=== PATIENT | male | born 1960 | race Caucasian/White ===

== ENCOUNTER 2021-12-08 08:49 | Inpatient (IN) ==
--- NOTE | 2021-11-23 09:23 | PAT Medication Instructions ---
Medication Instructions Date of Service November 23, 2021 Home Medications Medication Instructions Recorded metformin 500 mg tablet 1,000 mg PO BID #360 tabs 02/23/21 lisinopril 20 mg tablet 20 mg PO QPM #90 tabs 02/24/21 pantoprazole 40 mg tablet,delayed 40 mg PO QPM #90 tabs 06/21/21 release sertraline 100 mg tablet 100 mg PO QPM #90 tabs 06/21/21 melatonin 3 mg tablet 3 mg PO HS PRN metformin 500 mg tablet 1,000 mg PO BID lisinopril 20 mg tablet 20 mg PO QPM pantoprazole 40 mg tablet,delayed release 40 mg PO QPM sertraline 100 mg tablet 100 mg PO QPM aspirin 81 mg tablet,delayed release 81 mg PO QAM atorvastatin 40 mg tablet 40 mg PO HS celecoxib 100 mg capsule (Celebrex) 100 mg PO QAM cholecalciferol (vitamin D3) 50 mcg (2,000 unit) capsule 50 mcg PO QAM empagliflozin 10 mg tablet (Jardiance) 10 mg PO QAM mecobalamin (vitamin B12) 1,000 mcg chewable tablet 1,000 mcg PO QAM STOP 3 days before surgery empagliflozin 10 mg tablet (Jardiance) 10 mg PO QAM ASK your surgeon for instructions celecoxib 100 mg capsule (Celebrex) 100 mg PO QAM ASK your prescriber and surgeon aspirin 81 mg tablet,delayed release 81 mg PO QAM DO NOT take the morning of surgery metformin 500 mg tablet 1,000 mg PO BID cholecalciferol (vitamin D3) 50 mcg (2,000 unit) capsule 50 mcg PO QAM mecobalamin (vitamin B12) 1,000 mcg chewable tablet 1,000 mcg PO QAM Take evening before surgery melatonin 3 mg tablet 3 mg PO HS PRN(if needed) metformin 500 mg tablet 1,000 mg PO BID lisinopril 20 mg tablet 20 mg PO QPM pantoprazole 40 mg tablet,delayed release 40 mg PO QPM sertraline 100 mg tablet 100 mg PO QPM atorvastatin 40 mg tablet 40 mg PO HS Other Notes NOTHING TO EAT OR DRINK AFTER MIDNIGHT. If you have any questions please call us at [phone] or [phone] or [phone] or [phone]
--- NOTE | 2021-11-24 13:06 | Anesthesiology Consultation ---
Date of Service November 24, 2021 Assessment & Plan (1) Encounter for pre-operative examination: - COVID screening: Per assessment on 11/24: No known COVID-19 positive contacts or current COVID-19 related symptoms. Travel screen negative. At surgeon discretion if preop Covid testing being done. - Check BSG AM DOS - ASA instructions per surgeon/prescriber Chart Review Chart Review: Acceptable Risk for Surgery and Patient seen in Pre Admission Testing Teaching & Discussion Pre-Anesthesia Teaching/Discussion Notes: Instructed NPO after midnight before surgery,except medications with 15 cc of water. Medication instructions provided according to the PAT guidelines. History Surgery Operation Date: 12/08/21 07:30 Proposed Procedures p Left Common Femoral Endarterectomy with Patch - Franko Kuhn MD Height/Weight Height: 5 ft 10 in Weight: 98.8 kg Allergies Allergy/AdvReac Type Severity Reaction Status Date / Time niacin Allergy Swelling Verified 11/22/21 10:33 of Lip/Tongue/Throat, hives Medications Home Medications Medication Instructions Recorded Confirmed Last Taken melatonin 3 mg tablet 3 mg PO HS PRN Sleep 12/10/20 11/22/21 Unknown metformin 500 mg tablet 1,000 mg PO BID #360 tabs 02/23/21 11/22/21 Unknown lisinopril 20 mg tablet 20 mg PO QPM #90 tabs 02/24/21 11/22/21 Unknown pantoprazole 40 mg tablet,delayed 40 mg PO QPM #90 tabs 06/21/21 11/22/21 Unknown release sertraline 100 mg tablet 100 mg PO QPM #90 tabs 06/21/21 11/22/21 Unknown aspirin 81 mg tablet,delayed 81 mg PO QAM 11/22/21 11/22/21 Unknown release atorvastatin 40 mg tablet 40 mg PO HS 11/22/21 11/22/21 Unknown celecoxib 100 mg capsule (Celebrex) 100 mg PO QAM 11/22/21 11/22/21 Unknown cholecalciferol (vitamin D3) 50 50 mcg PO QAM 11/22/21 11/22/21 Unknown mcg (2,000 unit) capsule empagliflozin 10 mg tablet 10 mg PO QAM 11/22/21 11/22/21 Unknown (Jardiance) mecobalamin (vitamin B12) 1,000 1,000 mcg PO QAM 11/22/21 11/22/21 Unknown mcg chewable tablet Past Medical History Medical History Depression DM type 2 (diabetes mellitus, type 2) Femoral artery stenosis Severe calcified plaque within the left common femoral artery demonstrating up to 70% stenosis, Moderate calcified plaque within the right common femoral artery without significant stenosis per 10/2021 CTA GERD (gastroesophageal reflux disease) HLD (hyperlipidemia) HTN (hypertension) Exercise / Class Metabolic Activity II 4-5 Yardwork/Stairs/Walk up hill (one FS (no CP, no SOB)) Past Family History Family History Other No family history of adverse response to anesthesia Denies family history of Ovarian cancer Prostate cancer Myocardial infarction Breast cancer Colorectal cancer Past Surgical History Surgical History H/O elbow surgery Rt H/O hemorrhoidectomy History of colonoscopy History of esophagogastroduodenoscopy (EGD) History of hand surgery Lt [place] teeth extracted Past Anesthesia History No Hx of Anesthesia Complications and No Family Hx of Anesthesia Complications History of PONV No Hx of PONV and No Hx of Motion Sickness Social History Smoking Status: Former smoker Do You Dip or Chew Tobacco: No Smoking End Date: Quit 1995 Hx Alcohol Use: No (Sober since 2013) Hx Substance Use: No substance use type: does not use Review of Systems Patient denies chest pain, shortness of breath, dyspnea on exertion, fever, chills, cough, wheezing, palpitations. Physical Exam Vital Signs VITALS BP 118/74 P 80 TEMP 98.4 SP02 96%Ra RESP 18 PHYSICAL Full cervical extension range of motion. Full TMJ range of motion. TMD 3 finger breaths Mallampati Score 2 Dentition: intact, + several crowns/bridge/implant (sides) Lungs: clear throughout to auscultation Cardiac: regular rate and rhythm, no murmurs noted Spine: normal Carotid arteries: negative bruit Extremities: no edema Lab Results Anesthesia Preop Results Results Anesthesia Widget: WBC 9.26 K/ul (4.8-10.8) 11/24/21 Hgb 16.4 g/dl (14.0-18.0) 11/24/21 Hct 47.6 % (40.1-51.0) 11/24/21 Plt 212 K/uL (130-400) 11/24/21 Na 136 mmol/L (136-145) 11/24/21 K 3.9 mmol/L (3.5-5.1) 11/24/21 Cl 102 mmol/L (98-107) 11/24/21 CO2 27 mmol/L (21-32) 11/24/21 BUN 17 mg/dl (6-23) 11/24/21 Creat 0.90 mg/dl (0.6-1.4) 11/24/21 Glucose Level 167 mg/dl (70-99(Fasting)) H 11/24/21 PT 11.1 Seconds (9.0-12.0) 11/24/21 PTT 27.8 Seconds (21.0-31.0) 11/24/21 INR 1.0 (0.9-1.1) 11/24/21 HA1c 6.5 % (4.5-5.6) H 11/24/21 Blood Type O Positive 11/24/21 Antibody Screen NEGATIVE 11/24/21 Testing Electrocardiogram Date: 11/24/21 Findings: + NSR @ (70) Chest X-Ray Date: 11/24/21 FINDINGS: No pneumothorax. No pleural effusions. There are few punctate calcified granulomas within the right lung apex. Otherwise, the lungs are clear. The heart is normal in size. No evidence for pulmonary edema. IMPRESSION: No acute process. Other Testing CTA Abd/Pelvis/LEs (10/28/21) Severe calcified plaque within the left common femoral artery demonstrating up to 70% stenosis. Moderate calcified plaque within the right common femoral artery without significant stenosis. Only the proximal calf arteries are opacified due to the timing of contrast but appear patent. Therefore, this suggests three-vessel runoff bilaterally. COVID-19 Risk Screen Screening Information COVID-19 Screen Date: 11/24/21 Exposure 21 Days Family/Household +COVID Last 21 Days: No Exposure 10 Days Any COVID Exposure Last 10 Days: No Symptoms Last 10 Days Experienced COVID Sx Last 10 Days: No + COVID 0-90 Days COVID + in Last 0-90 Days: No
--- NOTE | 2021-12-08 07:32 | History & Physical Report ---
Date of Service December 08, 2021 Assessment & Plan (1) PAD (peripheral artery disease): Plan: At this point I recommended a left femoral artery endarterectomy. I did explain to him that this may not totally alleviate his problems as some of the symptoms appear to be neurogenic. He understands this and is agreeable to go ahead with the surgical procedure History of Present Illness Chief Complaint: Left common femoral artery stenosis Primary Care Provider: Tony Villarreal MD _Mr. Lopez is a middle-aged male who presents to Dr. Kuhn's vascular surgery clinic today as a new patient in consultation for leg burning and peripheral arterial disease noted on recent imaging. Patient states that he has noted bilateral thigh burning and occasional numbness when walking for the past 2 years or so. He states that after resting for about 5 minutes he is able to walk again but has the discomfort almost immediately when he begins walking the second time. He states he is able to ambulate about 3 blocks before the pain makes him stop the first time. He states sometimes it does move down into his calf muscles as well, but it is primarily his thighs that of the problem. It is worse and happens at an earlier point in ambulation when he is going uphill. He also has a symptoms if he stands in 1 position for a long period of time such as when cooking at the stove. He admits some mild edema of the ankles when sitting for long periods. He denies any history of major back problems, but does state that he sees a chiropractor regularly. He states he occasionally has some discomfort across his low back, but does not particularly associate this with his ambulation. He does not have improvement if he leans on the cart to walk through the grocery store. He denies headache, fever, chills, chest pain, shortness of breath, abdominal pain, nausea, vomiting, rest pain, nonhealing wounds or ulcers, discoloration of the feet or toes, other concerns. Allergies Allergy/AdvReac Type Severity Reaction Status Date / Time niacin Allergy Swelling Verified 11/22/21 10:33 of Lip/Tongue/Throat, hives Home Medications Medication Instructions Recorded Confirmed Type melatonin 3 mg tablet 3 mg PO HS PRN Sleep 12/10/20 11/22/21 History metformin 500 mg tablet 1,000 mg PO BID #360 tabs 02/23/21 11/22/21 Rx lisinopril 20 mg tablet 20 mg PO QPM #90 tabs 02/24/21 11/22/21 Rx pantoprazole 40 mg tablet,delayed 40 mg PO QPM #90 tabs 06/21/21 11/22/21 Rx release sertraline 100 mg tablet 100 mg PO QPM #90 tabs 06/21/21 11/22/21 Rx aspirin 81 mg tablet,delayed 81 mg PO QAM 11/22/21 11/22/21 History release atorvastatin 40 mg tablet 40 mg PO HS 11/22/21 11/22/21 History celecoxib 100 mg capsule (Celebrex) 100 mg PO QAM 11/22/21 11/22/21 History cholecalciferol (vitamin D3) 50 50 mcg PO QAM 11/22/21 11/22/21 History mcg (2,000 unit) capsule empagliflozin 10 mg tablet 10 mg PO QAM 11/22/21 11/22/21 History (Jardiance) mecobalamin (vitamin B12) 1,000 1,000 mcg PO QAM 11/22/21 11/22/21 History mcg chewable tablet Past Med/Surg History Medical History Depression DM type 2 (diabetes mellitus, type 2) Femoral artery stenosis Severe calcified plaque within the left common femoral artery demonstrating up to 70% stenosis, Moderate calcified plaque within the right common femoral artery without significant stenosis per 10/2021 CTA GERD (gastroesophageal reflux disease) HLD (hyperlipidemia) HTN (hypertension) Surgical History H/O elbow surgery Rt H/O hemorrhoidectomy History of colonoscopy History of esophagogastroduodenoscopy (EGD) History of hand surgery [place] teeth extracted Family History Other No family history of adverse response to anesthesia Denies family history of Ovarian cancer Prostate cancer Myocardial infarction Breast cancer Colorectal cancer Social History Smoking Status: Former smoker Second Hand Exposure: No; Hx Alcohol Use: No (Sober since 2013) Hx Substance Use: No Preferred Language: Tongan Communication Ability: Effective Wireless Consultant Required: No Beliefs That Will Affect Care: None Current Living Situation: Spouse Feels Safe at Home: Yes Assistive Devices: Glasses Review of Systems All systems reviewed & are unremarkable except as noted in HPI & below Physical Exam Physical Exam: Constitutional: In general patient is an obese but healthy- appearing well-nourished well-developed middle-aged male no distress. Is alert and oriented without any focal deficits. His head is normocephalic and atraumatic. Neck is supple nontender with a midline trachea and no carotid bruit. His heart is regular without murmur. His lungs are clear throughout. His abdomen is soft nontender with normoactive bowel sounds in all 4 quadrants. I do not appreciate any pulsatile mass. Brachial radial are +3. Right femoral pulses plus 2. His left femoral pulse is nonpalpable. Right lower extremity distal pulses are +2. His left distal pulses are nonpalpable. He has brisk capillary fill to the toes and no sign of distal ischemia. There is trace edema at the ankles.
[2021-12-08] MEDS: LACTATED RINGER'S 1,000 ML IV SCH ×4 (09:23→22:23)
[2021-12-08] MEDS ORDERED: ONDANSETRON INJ 2 MG/ML 2 ML VIAL IV PRN ×2 (09:55→14:23)
[2021-12-08] MEDS ORDERED: ATROPINE SULFATE 0.1 MG/ML 10ML SYR IV PRN (09:55)
[2021-12-08] MEDS ORDERED: PROMETHAZINE HCL 6.25 MG in SODIUM CHLORIDE 0.9% 50 ML IV PRN (09:55)
[2021-12-08] MEDS ORDERED: KETOROLAC 30 MG/ML VIAL IV PRN (09:55)
[2021-12-08] MEDS ORDERED: LABETALOL HCL IV 5 MG/ML 20ML IV PRN (09:55)
[2021-12-08] MEDS ORDERED: MIDAZOLAM HCL 1 MG/ML 2ML VIAL ONE (10:24)
[2021-12-08] MEDS ORDERED: fentaNYL citrate 100 MCG/2 ML VIAL ONE ×3 (10:24→11:26)
[2021-12-08] MEDS ORDERED: HEPARIN SOD (PORCINE) 5,000 UNITS/ML VIAL ONE (10:31)
[2021-12-08] MEDS ORDERED: LIDOCAINE 1% LOCAL 20 ML VIAL ONE (10:31)
[2021-12-08] MEDS ORDERED: EPINEPHrine INJ 1 MG/ML AMP ONE (10:31)
[2021-12-08] MEDS ORDERED: PAPAVERINE HCL INJ 30 MG/ML 2 ML VIAL ONE (10:31)
[2021-12-08] MEDS ORDERED: BUPIVACAINE 0.5 % 5 MG/1 ML MPF 30ML VIAL ONE (10:31)
[2021-12-08] MEDS ORDERED: ceFAZolin 330 MG/ML 1 GM VIAL ONE (10:32)
[2021-12-08] MEDS ORDERED: GELATIN SPONGE SZ 100 ONE (10:32)
[2021-12-08] MEDS ORDERED: THROMBIN 5000 UNITS KIT ONE ×2 (10:32→10:44)
[2021-12-08] MEDS ORDERED: HEPARIN (PORCINE) 1000 UNIT/ML 10 ML (CATH LAB USE ONLY) ONE (10:48)
--- NOTE | 2021-12-08 10:48 | History & Physical Bridge Note ---
Date of Service December 08, 2021 History & Physical Bridge Note I have examined the patient, reviewed the History & Physical and in the interval since the performance of the History & Physical I have noted the following changes of clinical significance: no changes noted
[2021-12-08] MEDS: CEFAZOLIN 2,000 MG/15 ML SYR IV SCH (10:51)
[2021-12-08] MEDS ORDERED: DEXAMETHASONE SOD INJ 4 MG/ML VIAL ONE (11:28)
[2021-12-08] MEDS ORDERED: LIDOCAINE 2% 2 ML VIAL/AMP(20MG/ML) INFIL ONE (11:28)
[2021-12-08] MEDS ORDERED: ePHEDrine sulfate 50 MG/ML SYR ONE (11:28)
[2021-12-08] MEDS ORDERED: PROPOFOL IV EMULSION 10 MG/ML 20 ML VIAL IV ONE (11:28)
[2021-12-08] MEDS ORDERED: ONDANSETRON INJ 2 MG/ML 2 ML VIAL ONE (11:28)
[2021-12-08] MEDS ORDERED: HEPARIN SOD (PORCINE) 1000 UNIT/ML ONE (11:28)
--- NOTE | 2021-12-08 12:46 | Operative Report ---
Post Operative Report Pre & Post Diagnosis Operation Date: 12/08/21 10:50 Pre-Op Diagnosis: peripheral artery disease Post-Op Diagnosis: peripheral artery disease I identified the patient and participated in the time-out.: Yes Procedure Operation Date: 12/08/21 10:50 Actual Procedures p Left Common Femoral Endarterectomy with bovine Patch(Left) - Franko Kuhn MD Surgeon Franko Kuhn MD Addresser Cj,PAC Estimated Blood Loss 50 Findings Consistent with Post-Op Diagnosis Specimens none Anesthesia Type General Complications none Disposition Accompanied Patient To Recovery: No Disposition: Recovery Room Indications This 61-year-old gentleman with severe left leg claudication. He was found to have a nearly occluded left common femoral artery. Endarterectomy of patch was recommended. I have discussed the risks options and benefits of the procedure with the patient. The patient understands the risks options and benefits and agrees to the procedure. Description of Procedure The patient was taken to the operating placed in place in the supine position. The left groin was then prepped and draped in a sterile manner after general a nesthesia was accomplished. Timeout was performed and the patient was identified. Longitudinal incision was made in the left groin. Is carried down through subcutaneous layer and the femoral sheath where the common femoral artery was identified. It was extremely hard to palpation. The common femoral artery was isolated just beyond its bifurcation to the superficial profundofemoral arteries. Both the superficial and profundofemoral arteries were soft. The common femoral artery at the inguinal ligament was soft. Once this entire dissection of common femoral artery was isolated the patient was heparinized. The artery was clamped proximally and the superficial femoral and profundofemoral arteries were clamped distally. A longitudinal arteriotomy was then made. A large amount of calcified plaque was seen in the artery with a barely patent lumen. Endarterectomy was started on the common femoral artery and the midportion. It was carried upward and downward. There was a nice break off point proximally. Distally the break-up point was smooth however we did use 3 tacking stitches to tack the plaque down in the superficial femoral artery origin. The profundofemoral artery origin was widely patent. After all loose plaque and flaps were removed a bovine patch was sewn in place using a 5-0 Prolene suture in the usual vascular fashion. Prior to completing the closure backbleeding and forward bleeding was allowed to occur. The final few sutures were then placed and securely tied after irrigating the flow surface with heparinized saline. Clamps were removed from the profunda and common femoral arteries. Finally the clamp was removed and superficial femoral artery. Excellent flow with a good pulse was felt throughout. Adequate hemostasis was then obtained. After adequate hemostasis was noted of the patch and the wound the wound was closed in usual fashion using running 2-0 Vicryl suture for the femoral sheath and a running 3-0 Vicryl suture for the subcutaneous layer. Javier were used for the skin and a Prevena dressing was placed over the wound.The patient left the operation room in satisfactory condition and tolerated the procedure well. All needle and sponge counts were correct at the end of the procedure. Berkley Limon Pac assisted due to lack of resident availability and was necessary for positioning, draping, retraction, wound closure deep layers, subcutaneous tissue, and skin closure and was necessary for assisting with the case. I attest to the content of the Intraoperative Record and any orders documented therein. Any exceptions are noted below.
[2021-12-08] MEDS: fentaNYL citrate 100 MCG/2 ML VIAL IV PRN ×8 (13:05→13:41)
[2021-12-08] MEDS: HYDROmorphone INJ 1 MG/ML SYRINGE IV PRN ×2 (13:47→13:52)
[2021-12-08] MEDS ORDERED: HYDROmorphone INJ 1 MG/ML SYRINGE ONE (13:47)
--- NOTE | 2021-12-08 14:07 | Anesthesiology Progress Note ---
Date of Service December 08, 2021 Anesthesia Post Procedure Vital Signs Vital Signs: Temp Pulse Pulse Resp BP BP Pulse Ox 12/08/21 14:00 36.5 C 65 16 131/76 98 12/08/21 13:50 63 25 H 117/83 99 12/08/21 13:40 64 21 128/74 97 12/08/21 13:30 59 L 15 119/84 94 12/08/21 13:20 66 13 137/75 96 12/08/21 13:10 64 15 138/79 100 12/08/21 13:00 69 15 141/76 H 99 12/08/21 12:54 36.0 C L 73 16 142/74 H 98 12/08/21 09:24 36.7 C 62 18 122/76 130/76 97 O2 Del Method O2 Flow Rate 12/08/21 14:00 Nasal Cannula 2 12/08/21 13:50 Nasal Cannula 2 12/08/21 13:40 Oxymask 2 12/08/21 13:30 Oxymask 2 12/08/21 13:20 Oxymask 2 12/08/21 13:10 Oxymask 4 12/08/21 13:00 Oxymask 4 12/08/21 12:54 Oxymask 4 12/08/21 09:24 Room Air Pain Intensity Left Groin: Pain Intensity: 2 Left Thigh: Pain Intensity: 3 Transfer of Care Handoff Completed per policy Notes Mental Status: alert / awake / arousable Patient Amnestic to Procedure: Yes Nausea / Vomiting: adequately controlled Pain: adequately controlled Airway Patency, RR, SpO2: stable & adequate BP & HR: stable & adequate Hydration State: stable & adequate Anesthetic Complications: no major complications apparent
[2021-12-08] MEDS ORDERED: MoRPHine SULFATE 4 MG/ML 1 ML CARP\\VIAL IV PRN (14:23)
[2021-12-08] MEDS ORDERED: MELATONIN 3 MG TAB PO PRN (14:23)
[2021-12-08] MEDS: ceFAZolin 2000MG 2,000 MG/15 ML SYR IV SCH ×2 (16:09→23:22)
[2021-12-08] MEDS: oxyCODONE/ACETAMINOPHEN 5mg/325mg TAB PO PRN ×2 (16:24→21:44)
[2021-12-08] MEDS ORDERED: SERTRALINE HCL 100 MG TABLET PO SCH (21:00)
[2021-12-08] MEDS ORDERED: lisinopril 20 MG TAB PO SCH (21:00)
[2021-12-08] MEDS ORDERED: ATORVASTATIN 40 MG TAB PO SCH (21:00)
[2021-12-08] MEDS ORDERED: PANTOprazole 40 MG TAB PO SCH (21:00)
[2021-12-08] MEDS: metFORMIN HCL 500 MG TAB PO SCH (21:46)
[2021-12-09] MEDS: LACTATED RINGER'S 1,000 ML IV SCH ×2 (00:17→05:38)
[2021-12-09] MEDS: oxyCODONE/ACETAMINOPHEN 5mg/325mg TAB PO PRN ×3 (03:23→14:18)
[2021-12-09] MEDS ORDERED: FLUARIX QUADRIVALENT 0.5 ML SYR IM ONE (08:00)
[2021-12-09] MEDS: metFORMIN HCL 500 MG TAB PO SCH (08:20)
[2021-12-09] MEDS ORDERED: CELECOXIB 100 MG CAP PO SCH (09:00)
[2021-12-09] MEDS ORDERED: ASPIRIN 81 MG ECTAB PO SCH (09:00)
[2021-12-09] MEDS ORDERED: EMPAGLIFLOZIN 10 MG TAB PO SCH (09:00)
[2021-12-09] MEDS ORDERED: CYANOCOBALAMIN (B-12) 500 MCG TABLET PO SCH (09:00)
[2021-12-09] MEDS ORDERED: CHOLECALCIFEROL 1,000 UNITS 25 MCG TAB PO SCH (09:00)
--- NOTE | 2021-12-09 15:28 | Surgery Progress Note ---
Date of Service December 09, 2021 Assessment & Plan (1) PAD (peripheral artery disease): Plan: Patient doing well POD1 from a left femoral endarterectomy. He will be d/c'd today. Admission and Anticipated Discharge Date Admission Date: December 08, 2021 Subjective Patient complaining of mild incisional discomfort. Foot without problems Physical Exam Constitutional: WD/WN, vitals as above Respiratory: normal respiratory effort; no respiratory distress Cardiovascular: Rate/Rhythm: regular rate and regular rhythm Vessels: posterior tibial pulses present and dorsalis pedis pulses present Extremities: normal capillary refill Musculoskeletal: no cyanosis or clubbing, extremities motor strength 5/5 Skin: + incision (prevena dressing intact) Psychiatric: Orientation: alert and oriented x 3 Results & Data ([facility]) Vital Signs (Past 12 Hours) Vital Signs Temp Pulse Pulse Resp BP Pulse Ox O2 Del Method 12/09/21 12:35 36.8 C 63 58 L 18 112/70 98 12/09/21 07:20 36.8 C 58 L 18 112/70 98 Room Air
[2021-12-09] MEDS ORDERED: ENOXAPARIN INJ 40 MG/0.4 ML SYR SQ SCH (20:00)
--- NOTE | 2021-12-10 07:44 | Discharge Summary ---
Date of Service December 10, 2021 Admission HPI Per Admitting Provider _Mr. Lopez is a middle-aged male who presents to Dr. [facility] surgery clinic today as a new patient in consultation for leg burning and peripheral arterial disease noted on recent imaging. Patient states that he has noted bilateral thigh burning and occasional numbness when walking for the past 2 years or so. He states that after resting for about 5 minutes he is able to walk again but has the discomfort almost immediately when he begins walking the second time. He states he is able to ambulate about 3 blocks before the pain makes him stop the first time. He states sometimes it does move down into his calf muscles as well, but it is primarily his thighs that of the problem. It is worse and happens at an earlier point in ambulation when he is going uphill. He also has a symptoms if he stands in 1 position for a long period of time such as when cooking at the stove. He admits some mild edema of the ankles when sitting for long periods. He denies any history of major back problems, but does state that he sees a chiropractor regularly. He states he occasionally has some discomfort across his low back, but does not particularly associate this with his ambulation. He does not have improvement if he leans on the cart to walk through the grocery store. He denies headache, fever, chills, chest pain, shortness of breath, abdominal pain, nausea, vomiting, rest pain, nonhealing wounds or ulcers, discoloration of the feet or toes, other concerns. Admission Exam Per Admitting Provider Constitutional: In general patient is an obese but healthy-appearing well- nourished well-developed middle-aged male no distress. Is alert and oriented without any focal deficits. His head is normocephalic and atraumatic. Neck is supple nontender with a midline trachea and no carotid bruit. His heart is regular without murmur. His lungs are clear throughout. His abdomen is soft nontender with normoactive bowel sounds in all 4 quadrants. I do not appreciate any pulsatile mass. Brachial radial are +3. Right femoral pulses plus 2. His left femoral pulse is nonpalpable. Right lower extremity distal pulses are +2. His left distal pulses are nonpalpable. He has brisk capillary fill to the toes and no sign of distal ischemia. There is trace edema at the ankles. Principal Diagnosis 1. s/p L common femoral endarterectomy with bovine patch 2. L common femoral artery occlusion Discharge Exam Constitutional WD/WN, vitals as above Respiratory normal respiratory effort; no respiratory distress Cardiovascular Rate/Rhythm: regular rate and regular rhythm Vessels: posterior tibial pulses present and dorsalis pedis pulses present Extremities: normal capillary refill Musculoskeletal no cyanosis or clubbing, extremities motor strength 5/5 Skin + incision (prevena dressing intact) Psychiatric Orientation: alert and oriented x 3 Discharge Data Allergies Allergy/AdvReac Type Severity Reaction Status Date / Time niacin Allergy Swelling Verified 12/08/21 09:19 of Lip/Tongue/Throat, hives Procedures Performed Operation Date: 12/08/21 10:50 Actual Procedures p Left Common Femoral Endarterectomy with Patch(Left) - Franko Kuhn MD Hospital Course (1) PAD (peripheral artery disease): Patient doing well POD1 from a left femoral endarterectomy. He will be d/c'd today. Total Time Total Time Spent Total Time Spent (In Minutes): 0 Discharge Plan Discharge Items Patient Disposition: Home - Self-Care Reason For Visit: Left Common Femoral Endarterectomy with Patch Discharge Diagnosis: Left common femoral artery stensosi Activity: Per Instructions section Non-emergency contact: Surgeon Call non-emergency contact if: your temperature is above 101.5, your wound has increased redness, your wound has increased drainage and your wound pain has increased Follow-up/Referrals: Dutch Miramontes MD [Primary Care Provider] - Diet: Carb Consistent or DM2 and Heart Healthy Addtl Attending Provider Instructions: ACTIVITY RECOMMENDATIONS: Leave groin dressing on for 7 days after surgery or until suction is lost Then remove and replace if any drainage daily May shower once groin dressing is removed. SPECIAL CARE INSTRUCTIONS: Call your doctor if: * Temperature above 101 degrees * Pain not relieved by pain medicine ordered * There is increased drainage or redness from any incision * You have any unanswered questions or concerns. Call [phone] to schedule a follow up appointment if one not already scheduled. Pending Studies at Discharge: No Stand-Alone Forms: My [employer], Smoking Cessation Medications and DC Order Prescriptions: New oxycodone-acetaminophen [Percocet] 5-325 mg tablet 1 tab PO Q4H PRN (Reason: pain) Qty: 30 0RF Continued metformin 500 mg tablet 1,000 mg PO BID Qty: 360 3RF lisinopril 20 mg tablet 20 mg PO QPM Qty: 90 3RF sertraline 100 mg tablet 100 mg PO QPM Qty: 90 3RF pantoprazole 40 mg tablet,delayed release (DR/EC) 40 mg PO QPM Qty: 90 3RF cholecalciferol (vitamin D3) 50 mcg (2,000 unit) capsule 50 mcg PO QAM Rx Instructions: with heaviest meal of the day Jardiance 10 mg tablet 10 mg PO QAM mecobalamin (vitamin B12) 1,000 mcg tablet,chewable 1,000 mcg PO QAM atorvastatin 40 mg Tablet 40 mg PO HS celecoxib [Celebrex] 100 mg Capsule 100 mg PO QAM aspirin 81 mg Tablet,Delayed Release (Dr/Ec) 81 mg PO QAM melatonin 3 mg Tablet 3 mg PO HS PRN (Reason: Sleep) Discharge Orders: Discharge Order (Routine); Ordered 12/09/21 Ordered By: Franko Kuhn Admission Data Admit Date/Time: 12/08/21 08:50 Attending Provider: Franko Kuhn Admit Provider: Franko Kuhn Primary Care Provider: Dutch Miramontes Other Interventions: Discharge Summary Assessment (RN) Last Done: 12/09/21 12:35
== END 2021-12-09 16:15 | disposition home or self-care (01) | DRG 254 ==
LOC: ASU 08:49 → PACUINP 08:50 → 3N 14:55